=== PATIENT | female | born 1960 | race Caucasian/White ===

== ENCOUNTER → 2017-03-06 | Outpatient (CLI) | payer BC ==
--- NOTE | ~2017-03-06 | MY29 ---
[facility] A Service of [facility] RADIOLOGY TEXT RESULTS PATIENT: JONATHAN FIGUEROA LOCATION: [facility] : 64 UNIT #: [id number] AGE: [address]: Lukas Salmon MD SEX: F ORDER DR: [id number] [facility] [address] [place], [place] [address] [id number] O MR#: [id number] Acc #: [id number] NAME: JONATHAN FIGUEROA : 1960 SEX: F STUDY DATE/TIME: 03/06/2017 12:19 UNIT: [facility] ROOM: STUDY DESCRIPTION: MY GERARDO SCREENING W/ CAD BILAT Attending Physician: Lukas Salmon M.D. Referring Physician: Lukas Salmon M.D. Ordering Physician: Lukas Salmon M.D. Primary Care Physician: Aakash Caraballo M.D. MEDICAL IMAGING REPORT This report is preliminary unless electronic signature is present EXAM Bilateral digital screening implant mammogram 03/06/2017, [facility] HISTORY 56-year-old woman previous augmentation. No risk elevation. Annual screen. COMPARISON 07/25/2012, 01/19/2014, 02/23/2015 FINDINGS Digital imaging of each breast was completed utilizing conventional projections and standard Grady views. Review includes FDA-approved CAD device. Bilateral retropectoral saline implants are stable. Moderately dense fibroglandular pattern noted in each breast. Presentation is stable. Punctate calcifications are again identified on the right. There is no interval occurring breast mass. There are no suspicious microcalcifications and no architectural deformity. IMPRESSION Negative mammogram. Stable retropectoral saline implants. Annual screening recommended. Patient's over the age of 40 are entered into a reminder system with target due date for the next mammogram. A result letter will be sent to the patient. BIRADS: 1 Negative Dictated by... Phong Mueller M.D. [facility] A Service of [facility] RADIOLOGY TEXT RESULTS PATIENT: JONATHAN FIGUEROA LOCATION: [facility] : 64 UNIT #: [id number] AGE: [address]: Lukas Salmon MD SEX: F ORDER DR: THIS IS AN ELECTRONICALLY VERIFIED REPORT Phong Mueller M.D. at 03/07/2017 8:03 AM CR/michelle TD: 03/06/2017 20:08 JOB #: [id number] MEDICAL IMAGING REPORT Page 1 of 1 COPY
== END | disposition home or self-care (01) ==
LOC: CWCC 11:35
DX: Z12.31 Encounter for screening mammogram for malignant neoplasm of breast (principal); Z98.82 Breast implant status
CPT/HCPCS: G0202